=== PATIENT | female | born 1985 | race Two or more races ===

== ENCOUNTER 2021-12-21 15:45 | Emergency (ER) | payer MEDICAID, OTHER ==
[~2021-12-21] VITALS: Ht 167.6 cm; Wt 142.9 kg
[2021-12-21 16:10] VITALS: BP 167/112
[2021-12-21] MEDS ORDERED: cloNIDine HCL 0.1 MG TAB PO ONE (16:15)
== END 2021-12-21 17:07 | disposition left against medical advice (07) ==
LOC: EDBD 15:45 → ER 15:45
DX: R55 Syncope and collapse (principal); Z88.8 Allergy status to other drugs, medicaments and biological substances; Z53.21 Procedure and treatment not carried out due to patient leaving prior to being seen by health care provider

== ENCOUNTER 2022-12-18 12:19 | Emergency (ER) | payer MEDICAID, OTHER ==
[~2022-12-18] VITALS: Ht 167.6 cm; Wt 145.6 kg
[2022-12-18 13:26] VITALS: BP 134/84
[2022-12-18] MEDS ORDERED: ACETAMINOPHEN 500 MG TAB PO ONE (13:45)
[2022-12-18] MEDS ORDERED: HYDROcodone-ACET 10/325MG TAB PO ONE (14:15)
[2022-12-18] MEDS ORDERED: HYDR-4798 PO (14:22)
[2022-12-18] MEDS ORDERED: METH750T22 PO (14:22)
== END 2022-12-18 14:27 | disposition home or self-care (01) ==
LOC: ER 12:19
DX: S16.1XXA Strain of muscle, fascia and tendon at neck level, initial encounter (principal); S39.012A Strain of muscle, fascia and tendon of lower back, initial encounter; V49.9XXA Car occupant (driver) (passenger) injured in unspecified traffic accident, initial encounter; Y93.89 Activity, other specified; Y92.89 Other specified places as the place of occurrence of the external cause; Y99.8 Other external cause status
CPT/HCPCS: 72040; 72100

== ENCOUNTER 2023-05-11 15:25 | Emergency (ER) | payer OTHER, MEDICAID ==
[~2023-05-11] VITALS: Ht 167.6 cm; Wt 144.6 kg
[~2023-05-11 15:25] MED LIST: HYDR-4798 PO; METH-1182 PO
[2023-05-11 16:03] VITALS: BP 160/96; PULSE 106; RESP 18; TEMP 99.5; O2SAT 98
[2023-05-11] MEDS ORDERED: HYDROcodone-ACET 10/325MG TAB PO ONE (16:15)
[2023-05-11] MEDS ORDERED: METH-1182 PO (17:02)
[2023-05-11] MEDS ORDERED: IBUP-1456 PO (17:02)
== END 2023-05-11 17:11 | disposition home or self-care (01) ==
LOC: ER 15:25
DX: S46.911A Strain of unspecified muscle, fascia and tendon at shoulder and upper arm level, right arm, initial encounter (principal); S16.1XXA Strain of muscle, fascia and tendon at neck level, initial encounter; M50.30 Other cervical disc degeneration, unspecified cervical region; G89.29 Other chronic pain; Z79.1 Long term (current) use of non-steroidal anti-inflammatories (NSAID); Z79.899 Other long term (current) drug therapy; Z88.8 Allergy status to other drugs, medicaments and biological substances; X50.1XXA Overexertion from prolonged static or awkward postures, initial encounter; Y93.89 Activity, other specified; Y92.89 Other specified places as the place of occurrence of the external cause; Y99.8 Other external cause status
CPT/HCPCS: 72040; 73030

== ENCOUNTER 2023-11-14 17:53 | Emergency (ER) | payer MEDICAID, OTHER ==
[~2023-11-14] VITALS: Ht 167.6 cm; Wt 140.9 kg
[~2023-11-14 17:53] MED LIST changes: +IBUP-1456 PO
[2023-11-14 18:00] VITALS: BP 128/85; PULSE 92; RESP 18; O2SAT 99
== END 2023-11-14 19:35 | disposition left against medical advice (07) ==
LOC: ER 17:53 → EDUNIT# 17:53 → EDBD 17:53 → ER 19:35
DX: M54.2 Cervicalgia (principal); Z53.21 Procedure and treatment not carried out due to patient leaving prior to being seen by health care provider
CPT/HCPCS: 81025